=== PATIENT | male | born 1955 | race Caucasian/White ===

== ENCOUNTER → 2016-06-15 | Outpatient (CLI) | payer BC ==
[~2016-06-15] MED LIST: ASPCH81X PO; ATEN-173 PO; ATOR10TA88 PO; CHOL200010 PO; GLC/500 PO; HYDR-3419 PO; MULT-506 PO; TRAM-10 PO
[2016-06-15 17:52] LABS: ALT/SGPT 35 U/L (12-78); BLOOD UREA NITROGEN 15 mg/dl (7-18); BUN/CREATININE RATIO 13.5 (10-20); CALCIUM 9.2 mg/dl (8.5-10.1); CARBON DIOXIDE 29 mmol/L (21-32); CHLORIDE 104 mmol/L (98-107); GLUCOSE 108 mg/dl (70-99); POTASSIUM 4.3 mmol/L (3.5-5.1); SODIUM 139 mmol/L (136-145)
[2016-06-15 17:54] LABS: ALB/GLOB RATIO 1.3 (0.9-2); ALKALINE PHOSPHATASE 50 U/L (45-117); AST/SGOT 19 U/L (15-37)
[2016-06-15 19:01] LABS: LYME DISEASE AB IGG NEG (NEG); LYME DISEASE AB IGM NEG (NEG)
== END | disposition home or self-care (01) ==
LOC: C.LABPVFM 10:56
PROVIDERS: ATTEND Nurse Practitioner
DX: G47.62 Sleep related leg cramps (principal)

== ENCOUNTER → 2016-07-05 | Outpatient (CLI) | payer BC ==
--- NOTE | 2016-07-05 09:44 | DIAGNOSTIC IMAGING REPORT ---
LUMBAR SPINE 5 VIEWS HISTORY: Pain LOW BACK PAIN COMPARISON: 12/09/2013 FINDINGS: There is no fracture. Minimal grade 1 retrolisthesis of L3 on L4. This is unchanged. Moderate degenerative disc changes throughout. This is nonprogressive. Reactive osteophytic changes throughout. IMPRESSION: Moderate to significant degenerative change. Mild scoliosis. No change from the prior study. Electronically signed by: Mike Damon M.D. 07/05/2016 9:42 AM Dictated Date/Time: 07/05/2016 9:40 AM
[2016-07-05 12:33] LABS: ESTIMATED AVERAGE GLUCOSE 146 mg/dl; HA1C FLAG Normal (Normal)
== END | disposition home or self-care (01) ==
LOC: C.LABPVFM 09:13
PROVIDERS: ATTEND Nurse Practitioner
DX: M54.5 Low back pain (principal); E11.9 Type 2 diabetes mellitus without complications

== ENCOUNTER → 2016-12-27 | Outpatient (CLI) | payer BC ==
[~2016-12-27] MED LIST changes: -HYDR-3419 PO; +NORT25CA PO
--- NOTE | 2016-12-27 15:43 | SWALLOWING EVALUATION ---
HISTORY: This 61 year old man was referred for a video swallow study at [facility] in order to rule out aspiration and identify the safest consistencies for optimal oral intake. The patient reports difficulty swallowing pills at times, and that he has the sensation that the top of his throat will "close up". He states that when this occurs he feels full and cannot eat anymore. He also has c/o pain after he swallows and pointed to his mid sternum as to where he feels the pain. PMH is significant for: Kidney stones, hypertension, DM, and scoliosis. He also reports he was recently placed on reflux medications for suspected GERD. Current diet is regular. PROCEDURE: The patient was seen in the Radiology Department of [facility] for the [facility]. Cursory examination of the oral cavity revealed natural dentition. Oral motor function was wnl. The patient was seated on a stool and was viewed in both the Anterior-Posterior (A-P) and Lateral planes. Volitional phonation exercises completed in the A-P plane revealed bilateral vocal fold movement and vocal intensity within functional limits. In the lateral plane, the patient was given the following boluses: 1 tsp. thin liquid barium x 2, single swallow thin liquid barium self-presented from a cup, sequential swallows of thin liquid barium self-presented from a cup, 1 tsp. nectar-thick liquid barium, single swallow nectar-thick liquid barium self-presented from a cup, 1 tsp. barium pudding, and 1 club cracker coated in barium pudding. The patient was then repositioned into the A-P plane and given the following boluses: 1 tsp. nectar thick barium and 1 tsp. barium pudding. RESULTS: Oral Stage: Lip closure was adequate. The patient was able to maintain a cohesive liquid bolus in the oral cavity without any escape during the liquid bolus hold task. Mastication was timely and efficient. Lingual motion for bolus transport was noted to be slow. There was retention lining the tongue and palate after the swallow. This was cleared with a second swallow. The initiation of the pharyngeal swallow was timely and occurred when the bolus head reached the posterior angle of the ramus. Pharyngeal Stage: Soft palate elevation was complete. Laryngeal elevation revealed complete superior movement of the thyroid cartilage with complete approximation of the arytenoids to the epiglottic base. Anterior hyoid excursion was complete. Epiglottic deflection was complete. Laryngeal vestibular closure was complete. The pharyngeal stripping wave was present and complete. There was partial distention and duration of the opening to the pharyngoesophageal segment (PES). Tongue base retraction was reduced, with a trace column of contrast located between the tongue base and pharyngeal wall during the swallow. There was trace retention located in the valleculae and pyriforms after the swallow. The pharyngeal stage of the swallow was essentially wnl. There was no evidence of laryngeal penetration or aspiration. Only trace amounts of retention noted after the swallow. Esophageal stage: There was complete esophageal clearance. SUMMARY/RECOMMENDATIONS: This patient presents with normal sally-pharyngeal swallowing mechanics. Although not evidenced during this study, it is suspected that the patient may experience s/s of esophageal dysfunction. The following is recommended: 1. Regular diet and thin liquids. 2. Aspiration precautions. Fully upright while eating and 30 minutes after meals. 3. Follow up with PCP. Consider GI consultation to include medication management and/or Barium Swallow as appropriate for any increased s/s of esophageal dysfunction. A summary of the results and recommendations was discussed with the patient immediately following the study with verbal understanding. Thank you for referral of this patient. Please contact me at if any additional information is needed.
--- NOTE | 2016-12-27 15:51 | DIAGNOSTIC IMAGING REPORT ---
VIDEO SWALLOW STUDY CLINICAL HISTORY: Dysphagia. COMPARISON STUDY: Barium esophagram dated 07/09/2011. Fluoroscopy time: 1.4 minutes. FINDINGS: Fluoroscopic guidance was provided to the Department of Speech Pathology in performing a video swallow study. The patient consumed barium impregnated pudding, cracker with paste, nectar thick liquid, and thin barium while the swallowing mechanism was observed in real-time. No penetration or aspiration was seen with any of the sampled textures. The swallowing mechanism was normal. IMPRESSION: Normal video swallow study with no penetration or aspiration identified. See dedicated Speech Pathology report for detailed findings and recommendations. Dictated: 12/27/2016 3:27 PM Transcribed: 12/27/2016 3:51 PM [email or web address] Electronically signed by: Matthew Leon M.D. 12/27/2016 3:56 PM Dictated Date/Time: 12/27/2016 3:27 PM
== END | disposition home or self-care (01) ==
LOC: C.RAD 13:23
PROVIDERS: ATTEND Physician Assistant
DX: R13.10 Dysphagia, unspecified (principal)

== ENCOUNTER → 2017-01-05 | Outpatient (CLI) | payer BC ==
[2017-01-05 13:25] LABS: ESTIMATED AVERAGE GLUCOSE 148 mg/dl; HA1C FLAG Normal (Normal)
[2017-01-05 13:37] LABS: BLOOD UREA NITROGEN 15 mg/dl (7-18); BUN/CREATININE RATIO 15.5 (10-20); CALCIUM 9.2 mg/dl (8.5-10.1); CARBON DIOXIDE 32 mmol/L (21-32); CHLORIDE 104 mmol/L (98-107); GLUCOSE 125 mg/dl (70-99); POTASSIUM 4.3 mmol/L (3.5-5.1); SODIUM 139 mmol/L (136-145); TRIGLYCERIDES 270 mg/dl (0-150); VERY LOW DENSITY LIPOPROT CALC 54 mg/dl
[2017-01-05 13:40] LABS: CHOLESTEROL 150 mg/dl (0-200); CHOLESTEROL/HDL RATIO 3.8; HDL CHOLESTEROL 40 mg/dl; LDL CHOLESTEROL CALCULATED 56 mg/dl
== END | disposition home or self-care (01) ==
LOC: C.LABPVFM 08:01
PROVIDERS: ATTEND Nurse Practitioner
DX: I10 Essential (primary) hypertension (principal); E11.9 Type 2 diabetes mellitus without complications; E78.5 Hyperlipidemia, unspecified; Z11.59 Encounter for screening for other viral diseases

== ENCOUNTER → 2017-01-11 | Outpatient (CLI) | payer BC ==
--- NOTE | 2017-01-11 09:44 | DIAGNOSTIC IMAGING REPORT ---
C-SPINE ROUTINE 4 OR 5 VIEWS CLINICAL HISTORY: Neck pain Cervical radiculopathy COMPARISON STUDY: 09/22/2009 FINDINGS: There is a slight reversal of the normal cervical lordosis. No acute fractures or subluxations are visualized. There are moderate multilevel degenerative changes. There is anterior osteophyte formation. There is uncovertebral joint spurring. There is bilateral foraminal narrowing most pronounced at the C5-6 and C6-7 levels. IMPRESSION: 1. Moderate multilevel degenerative change 2. No acute fractures or traumatic subluxations identified Electronically signed by: Jarrett Medrano M.D. 01/11/2017 9:43 AM Dictated Date/Time: 01/11/2017 9:41 AM
--- NOTE | 2017-01-11 09:51 | DIAGNOSTIC IMAGING REPORT ---
RIGHT SHOULDER MIN 2 VIEWS ROUTINE CLINICAL HISTORY: Right shoulder pain COMPARISON: None. DISCUSSION: No fractures or dislocations are visualized. Degenerative changes are present within the AC joint. IMPRESSION: Degenerative changes within the AC joint. No acute fractures. No visible periarticular calcifications. Electronically signed by: Jarrett Medrano M.D. 01/11/2017 9:50 AM Dictated Date/Time: 01/11/2017 9:43 AM
== END | disposition home or self-care (01) ==
LOC: C.RADPV 09:13
PROVIDERS: ATTEND Nurse Practitioner
DX: M54.12 Radiculopathy, cervical region (principal); M25.511 Pain in right shoulder

== ENCOUNTER → 2017-02-25 | Outpatient (CLI) | payer BC ==
[~2017-02-25] MED LIST changes: +ATOR10TA82 PO; -ATOR10TA88 PO
--- NOTE | 2017-02-25 11:00 | DIAGNOSTIC IMAGING REPORT ---
KUB CLINICAL HISTORY: URETERAL STONE N20.1 nephrocalcinosis COMPARISON STUDY: 04/03/2016 FINDINGS: The soft tissues, psoas shadows, renal outlines and intestinal gas pattern appear normal. There is no evidence for bowel obstruction. No abnormal abdominal calcifications are seen. Several calcifications overlying the sacral wings bilaterally unaltered. Degenerative change lumbar spine considered stable. IMPRESSION: No significant nephrocalcinosis. No major change from the prior exam. The above report was generated using voice recognition software. It may contain grammatical, syntax or spelling errors. Electronically signed by: Mike Damon M.D. 02/25/2017 10:58 AM Dictated Date/Time: 02/25/2017 10:56 AM
== END | disposition home or self-care (01) ==
LOC: C.RAD 10:33
PROVIDERS: ATTEND Nurse Practitioner Family
DX: N20.1 Calculus of ureter (principal)

== ENCOUNTER → 2017-02-25 | Outpatient (CLI) | payer BC ==
--- NOTE | 2017-02-25 11:58 | DIAGNOSTIC IMAGING REPORT ---
CERVICAL WITHOUT CONTRAST HISTORY: Pain. Neuropathy. M62.81 Muscle [id number] Cervical radiculopathy Physical therm TECHNIQUE: Multiplanar multisequence MRI of the cervical spine was performed without the use of contrast. COMPARISON STUDY: None. FINDINGS: Signal characteristics of the vertebral bodies are unremarkable. Signal characteristics cervical cord are unremarkable. Mild degenerative disc desiccation throughout. C2-C3: No significant central canal or neural foraminal narrowing. C3-C4: Mild right central disc herniation with minimal impact anterior right cervical cord. Moderate narrowing right and to a lesser extent left neural foramina. C4-C5: Mild broad-based disc herniation with minimal impact anterior cervical cord. Moderate narrowing of the neuroforamina bilaterally. C5-C6: Mild/moderate broad-based disc herniation. Moderate impact anterior cervical cord. Moderate to significant narrowing of the neuroforamina bilaterally. C6-C7: Broad-based bulging disc with minimal impact anterior cervical cord. Moderate osteophytic narrowing of the left and to a lesser extent right neural foramina. C7-T1: No significant central canal or neural foraminal narrowing. IMPRESSION: 1. Moderate degenerative disc change at the entire cervical region. 2. Moderate broad-based disc herniation C5-C6 with moderate impact anterior cervical cord and narrowing of the neuroforamina bilaterally. 3. Broad-based bulging disc C4-C5 and C6-C7 with mild narrowing of the neural foramina as described. 4 per mild right central disc herniation C3-C4 with moderate narrowing of the right neuroforamina. The above report was generated using voice recognition software. It may contain grammatical, syntax or spelling errors. Electronically signed by: Mike Damon M.D. 02/25/2017 11:57 AM Dictated Date/Time: 02/25/2017 11:51 AM
== END | disposition home or self-care (01) ==
LOC: C.MRI 10:29
PROVIDERS: ATTEND Nurse Practitioner
DX: M54.12 Radiculopathy, cervical region (principal); M62.81 Muscle weakness (generalized); N20.1 Calculus of ureter

== ENCOUNTER → 2017-08-12 | Outpatient (CLI) | payer BC ==
[~2017-08-12] MED LIST changes: -NORT25CA PO
[2017-08-12 13:19] LABS: HEMOGLOBIN A1C 7.2 % (4.5-5.6)
[2017-08-12 13:34] LABS: BLOOD UREA NITROGEN 15 mg/dl (7-18); CARBON DIOXIDE 28 mmol/L (21-32); CREATININE 1.17 mg/dl (0.60-1.40); GLUCOSE 106 mg/dl (70-99); POTASSIUM 4.1 mmol/L (3.5-5.1); SODIUM 140 mmol/L (136-145)
== END | disposition home or self-care (01) ==
LOC: C.LABPVFM 09:35
PROVIDERS: ATTEND Urology
DX: Z12.5 Encounter for screening for malignant neoplasm of prostate (principal); E11.9 Type 2 diabetes mellitus without complications; I10 Essential (primary) hypertension; E78.5 Hyperlipidemia, unspecified